=== PATIENT | female | born 1970 | race African-American/Black ===

== ENCOUNTER 2020-07-03 12:44 | Emergency (ER) | payer OTHER ==
[~2020-07-03] VITALS: Ht 162.6 cm; Wt 166.9 kg
[2020-07-03] MEDS ORDERED: METFORMIN HCL500 M3 PO (13:01)
[2020-07-03 13:29] LABS: HEMATOCRIT 39.6 % (37.0-47.0); HEMOGLOBIN 12.1 gm/dL (12.0-15.0); MCH 22.8 pg (26.0-34.0); MCHC 30.6 g/dL (28.0-37.0); MCV 74.6 fL (80.0-100.0); PLATELET COUNT 371 thou/uL (150-400); RBC 5.31 mil/uL (4.20-5.00); RDW 15.7 % (10.5-14.5); WBC 5.5 thou/uL (4.0-11.0)
[2020-07-03 13:44] LABS: ANION GAP 8 mmol/L (7-16); BUN 16 mg/dL (7-18); CALCIUM 9.6 mg/dL (8.5-10.1); CHLORIDE 100 mmol/L (98-107); CO2 30 mmol/L (21-32); CREATININE 1.2 mg/dL (0.6-1.0); GLUCOSE 401 mg/dL (74-106); POTASSIUM 4.3 mmol/L (3.5-5.1); SODIUM 138 mmol/L (136-145)
[2020-07-03 13:55] LABS: ALBUMIN 3.3 g/dL (3.4-5.0); SGOT 14 U/L (15-37); SGPT 34 U/L (14-59); TOTAL BILIRUBIN 0.3 mg/dL (0.2-1.0); TROPONIN-I <0.06 ng/mL (<0.06)
[2020-07-03] MEDS ORDERED: VICTOZA0.6 MG/0.1 SUBQ (13:55)
[2020-07-03] MEDS ORDERED: NEURONTIN 300M300 M2 PO (13:57)
[2020-07-03] MEDS ORDERED: TRAMADOL 50 MG50 MG PO (13:57)
[2020-07-03] MEDS ORDERED: IBUPROFEN 800800 M1 PO (13:58)
[2020-07-03 14:05] LABS: ABSOLUTE NEUTROPHILS 2.8 thou/uL (1.4-8.2); HYPOCHROMASIA 1+
[2020-07-03 15:42] VITALS: BP 177/102
--- NOTE | 2020-07-04 07:15 | EKG ---
[address] [place] [employer] [place] [address] ELECTROCARDIOGRAM REPORT Name: XIAO RODRIGUEZ Room [facility]: [id number] Admission: 07/03/20 Attend Phys: Discharge: 07/03/20 Date of : 74 Report #: [id number] [facility] ED Test Date: 2020-07-03 Test Time: 15:31:38 Pat Name: XIAO RODRIGUEZ Department: Room: Gender: F Leakage Tester: : 1970 Requested By: Mario Alberto Lindsey Order Number: [id number] MD: Jeo Seals Measurements Intervals [place] Rate: 93 P: 59 VA: 154 QRS: 25 QRSD: 92 T: 8 QT: 369 QTc: 459 Interpretive Statements Sinus rhythm Borderline T abnormalities, anterior leads No previous ECG available for comparison Electronically Signed On 07-04-2020 7:15:22 CUSTOMER ACCOUNT MANAGER by Joe Seals [email or web address] <ELECTRONICALLY SIGNED> By: Joe Seals MD, [facility] 07/04/20 0715 1531 1531 Joe Seals MD, FACC /EPI
--- NOTE | 2020-07-04 07:15 | EKG ---
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
== END 2020-07-03 15:43 | disposition home or self-care (01) ==
LOC: ER 12:44
PROVIDERS: Emergency Medicine
DX: R07.89 Other chest pain (principal); Z79.899 Other long term (current) drug therapy; Z91.018 Allergy to other foods